=== PATIENT | female | born 1950 | race Caucasian/White ===

== ENCOUNTER 2017-11-21 07:23 | Day surgery (SDC) | payer OTHER, BC ==
[2017-11-14 09:42] VITALS: BMI 24.5
[2017-11-21] MEDS ORDERED: PROPOFOL 20 ML ONE ×2 (07:26)
[2017-11-21 09:31] VITALS: BP 112/58; PULSE 58; TEMP 97.9
== END 2017-11-21 09:31 | disposition home or self-care (01) ==
LOC: FASU-ENDO 07:23
PROVIDERS: ATTEND Internal Medicine Gastroenterology
PROC: 0DJD8ZZ Inspection of Lower Intestinal Tract, Via Natural or Artificial Opening Endoscopic (ICD-10-PCS; principal; 2017-11-21 08:31)
DX: Z86.010 Personal history of colon polyps (principal); K57.30 Diverticulosis of large intestine without perforation or abscess without bleeding

== ENCOUNTER 2023-02-24 07:12 | Day surgery (SDC) | payer OTHER, BC ==
[2023-02-18 15:57] VITALS: BMI 23.6
[2023-02-24 07:39] VITALS: TEMP 97.2
[2023-02-24] MEDS ORDERED: PROPOFOL 80 ML ONE (07:44)
[2023-02-24] MEDS ORDERED: LIDOCAINE HCL/PF 2% SDV 5ML VIAL ONE (07:44)
[2023-02-24 08:47] VITALS: BP 118/74; PULSE 62; RESP 18
== END 2023-02-24 09:05 | disposition home or self-care (01) ==
LOC: FASU-ENDO 07:12
PROVIDERS: ATTEND Internal Medicine Gastroenterology
PROC: 0DBK8ZX Excision of Ascending Colon, Via Natural or Artificial Opening Endoscopic, Diagnostic (ICD-10-PCS; principal; 2023-02-24 08:16)
DX: Z12.11 Encounter for screening for malignant neoplasm of colon (principal); D12.2 Benign neoplasm of ascending colon; K57.30 Diverticulosis of large intestine without perforation or abscess without bleeding; Z86.010 Personal history of colon polyps
CPT/HCPCS: 88305-TC